=== PATIENT | male | born 1985 | race Caucasian/White ===

== ENCOUNTER → 2021-03-08 | Outpatient (CLI) | payer BC ==
[~2021-03-08] MED LIST: ALDACTONE; ALDACTONE 25MG25 MG PO; ASPIRIN 32325 MG/TAB PO; CARDIZEM120 MG PO; CARVEDILOL6.25 MG PO; CEPHALEXIN500 M1 PO; COZAAR; DULOXETINE30 MG PO; FUROSEMIDE; GOOD SENSE ASPI81 M1; K-TAB10 MEQ; LASIX 80MG TABL80 MG PO; LOPRESSOR 550 MG/TAB; MEXILETINE HCL200 M1 PO; MEXILETINE250 MG PO; POTASSIUM CHLO20 ME3 PO; ROBAXIN 75750 MG/TA1 PO; SOTALOL HCL120 MG PO; XARELTO20 MG PO
== END ==
LOC: LAB 10:10
DX: N39.0 Urinary tract infection, site not specified (principal)

== ENCOUNTER 2021-03-27 13:28 | Emergency (ER) | payer BC, MEDICARE ==
[~2021-03-27 13:28] MED LIST changes: -ALDACTONE 25MG25 MG PO; -CARVEDILOL6.25 MG PO; -DULOXETINE30 MG PO; -LASIX 80MG TABL80 MG PO; -MEXILETINE HCL200 M1 PO; -POTASSIUM CHLO20 ME3 PO; -ROBAXIN 75750 MG/TA1 PO; -SOTALOL HCL120 MG PO; -XARELTO20 MG PO
[2021-03-27 14:48] LABS: BASO # 0.06 (0.02-0.10); EOS # 0.31 (0.04-0.40); EOS % 2.8 % (0.0-4.0); HEMATOCRIT 41.9 % (42.0-52.0); LYMPH# 1.98 (1.50-4.00); MEAN CELL VOLUME 90 fl (78-100); MEAN CORPUSCULAR HEMOGLOBIN 30 pg (27-31); MEAN CORPUSCULAR HGB CONC 33 g/dL (33-37); MEAN PLATELET VOLUME 12.4 fl (7.4-10.4); MONO # 0.87 (0.20-0.80); NEU # 7.83 (1.40-6.50); PLATELET COUNT 160 K/mm3 (130-400); RED BLOOD COUNT 4.66 M/mm3 (4.20-5.60); RED CELL DISTRIBUTION WIDTH 13.8 % (11.5-14.5); WHITE BLOOD COUNT 11.1 K/mm3 (4.8-10.8)
[2021-03-27 14:57] LABS: PROTHROMBIN TIME 11.9 SECONDS (9.0-12.0)
[2021-03-27 14:58] LABS: URINE APPEARANCE HAZY; URINE COLOR YELLOW
[2021-03-27 14:59] LABS: D-DIMER 0.44 mg/L FEU (0.15-0.50); URINE BILIRUBIN 1+ (NEGATIVE); URINE BLOOD NEGATIVE (NEGATIVE); URINE GLUCOSE NEGATIVE (NEGATIVE); URINE KETONE NEGATIVE (NEGATIVE); URINE LEUKOCYTE ESTERASE TRACE (NEGATIVE); URINE NITRATE NEGATIVE (NEGATIVE); URINE PROTEIN(semi-quant) TRACE mg/dL (NEGATIVE); URINE UROBILINOGEN NORMAL (NORMAL)
[2021-03-27 15:00] LABS: ALBUMIN 4.3 g/dL (3.5-5.0); POTASSIUM 3.7 mmol/L (3.5-5.1)
[2021-03-27 15:01] LABS: CALCIUM 9.1 mg/dL (8.3-10.5)
[2021-03-27 15:02] LABS: TOTAL PROTEIN 7.7 g/dL (6.4-8.3)
[2021-03-27 15:18] LABS: TROPONIN-I 0.04 ng/mL (<0.030)
[2021-03-27] MEDS ORDERED: MEXILETINE HCL200 M1 PO (16:09)
[2021-03-27] MEDS ORDERED: DULOXETINE30 MG PO (16:10)
[2021-03-27] MEDS ORDERED: ALDACTONE 25MG25 MG PO (16:10)
[2021-03-27] MEDS ORDERED: CARVEDILOL6.25 MG PO (16:11)
[2021-03-27] MEDS ORDERED: SOTALOL HCL120 MG PO (16:12)
[2021-03-27] MEDS ORDERED: LASIX 80MG TABL80 MG PO (16:13)
[2021-03-27] MEDS ORDERED: POTASSIUM CHLO20 ME3 PO (16:15)
[2021-03-27] MEDS ORDERED: ROBAXIN 75750 MG/TA1 PO (16:15)
[2021-03-27] MEDS ORDERED: XARELTO20 MG PO (16:16)
[2021-03-27 17:52] VITALS: BP 117/79
== END 2021-03-27 18:44 | disposition home or self-care (01) ==
LOC: ED 13:28
PROVIDERS: Physician Assistant
DX: I50.9 Heart failure, unspecified (principal); G43.909 Migraine, unspecified, not intractable, without status migrainosus; Z79.01 Long term (current) use of anticoagulants; Z79.899 Other long term (current) drug therapy
CPT/HCPCS: J1200; J1940; J2930; J3010; Q9967